=== PATIENT | male | born 1985 | race Caucasian/White ===

== ENCOUNTER 2016-11-09 17:13 | Emergency (ER) | payer OTHER | END 2016-11-09 18:11 | disposition home or self-care (01) | LOC: ED 17:13 | DX: R11.2 Nausea with vomiting, unspecified (principal); R10.11 Right upper quadrant pain; R05 Cough; F17.210 Nicotine dependence, cigarettes, uncomplicated; T52.0X1A Toxic effect of petroleum products, accidental (unintentional), initial encounter; Y92.9 Unspecified place or not applicable ==